=== PATIENT | female | born 1995 | race Two or more races ===

== ENCOUNTER 2024-12-22 15:26 | Emergency (ER) | payer OTHER ==
[~2024-12-22] VITALS: Ht 167.6 cm; Wt 61.9 kg
[2024-12-22 16:07] LABS: Urine Bacteria FEW /hpf (None Seen); Urine Blood 3+ /uL (Negative); Urine Clarity Clear (Clear); Urine Color Colorless (Yellow); Urine Protein, UAD Negative (Negative); Urine Specific Gravity 1.001 (1.001-1.035); Urine Squamous Epithelial Cell None Seen /hpf (<5); Urine Urobilinogen Normal (Negative); Urine WBC 1 /HPF (0-5)
--- NOTE | 2024-12-22 19:06 | DVH ---
EXAM: US OB ULTRASOUND COMP LESS 14WKS CLINICAL HISTORY: vag bleed COMPARISON: None TECHNIQUE: Grayscale, color-flow Doppler, and spectral Doppler ultrasound of the pelvis is performed by transabdominal and transvaginal technique. Findings: Quantitative beta HCG 236. No visualized intrauterine . Uterus measures 9.0 x 3.3 x 4.1 cm in size. Cervical os appears closed. No evidence of subchorionic hemorrhage. Right ovary measures 2.2 x 1.1 x 2.2 cm. Left ovary measures 2.9 x 1.5 x 2.1 cm. Left ovarian follicl e. Normal ovarian color Doppler flow bilaterally. No free fluid within the cul-de-sac. Impression: 1. No visualized intrauterine . Findings may be due to early gestation. Recommend short int erval follow-up ultrasound with serial quantitative beta HCG for further evaluation. 2. Uterus and endometrium are within normal limits. 3. Bilateral ovaries grossly unremarkable.
--- NOTE | 2024-12-22 19:21 | ED.PDOC ---
[employer]OM[employer] HPI Comments Patient complaining of vaginal bleeding and cramping which started today. Concerned because she was possibly 4-6 weeks . States last menstrual was 11/14. She was . States she had beta hCG done on the 15 of December and it recorded as 139. Has not had OBGYN appointment yet. Chief Complaint: Vaginal Bleed Time Seen by MD: 15:43 Reviewed Notes: Nurses Notes Allergies: Coded Allergies: NO KNOWN ALLERGIES (Unverified , 12/22/24) Information Source: Patient Past Medical History PAST MEDICAL HISTORY: Denies Surgical History: Denies all surgeries TOUR CONDUCTOR History: No Pertinent TOUR CONDUCTOR History Constitutional: denies: chills, diaphoresis, fatigue, fever, malaise, sweats, weakness, others EENTM: denies: blurred vision, double vision, ear bleeding, ear discharge, ear drainage, ear pain, ear ringing, eye pain, eye redness, hearing loss, mouth pain, mouth swelling, nasal discharge, nose bleeding, nose congestion, nose pain, photophobia, tearing, throat pain, throat swelling, voice changes, others Respiratory: denies: cough, hemoptysis, orthopnea, SOB at rest, shortness of breath, SOB with excertion, stridor, wheezing, others Cardiovascular: denies: chest pain, dizzy spells, diaphoresis, Dyspnea on exertion, edema, irregular heart beat, left arm pain, lightheadedness, palpitations, PND, syncope, others Gastrointestinal: denies: abdomen distended, abdominal pain, blood streaked bowels, constipated, diarrhea, dysphagia, difficulty swallowing, hematemesis, melena, nausea, poor appetite, poor fluid intake, rectal bleeding, rectal pain, vomiting, others Genitourinary: denies: abnormal vagina bleeding, burning, dyspareunia, dysuria, flank pain, frequency, hematuria, incontinence, pain, , vagina discharge, urgency, others Neurological: denies: dizziness, fainting, headache, left sided numbness, left sided weakness, numbness, paresthesia, pre-existing deficit, right sided numbne ss, right sided weakness, seizure, speech problems, tingling, tremors, weakness, others Musculoskeletal: denies: back pain, gout, joint pain, joint swelling, muscle pain, muscle stiffness, neck pain, others Integumetry: denies: bruises, change in color, change in hair/nails, dryness, laceration, lesions, lumps, rash, wounds, others Allergic/Immunocompromised: denies: Difficulty Healing, Frequent Infections, Hives, Itching, others Hematologic/Lymphatic: denies: anemia, blood clots, easy bleeding, easy bruising, swollen glands, others Endocrine: denies: excessive hunger, excessive sweating, excessive thirst, excessive urination, flushing, intolerance to cold, intolerance to heat, unexplained weight gain, unexplained weight loss, others Psychiatric: denies: anxiety, bipolar disorder, depression, hopeless, panic disorder, schizophrenia, sleepless, suicidal, others Physical Exam General Appearance: No Apparent Distress, Normal HEENT: Normal ENT Inspection, Pharynx Normal, TMs Normal Neck: Full Range of Motion, Non-Tender, Normal, Normal Inspection Respiratory: Chest Non-Tender, Lungs Clear, No Accessory Muscle Use, No Respiratory Distress, Normal Breath Sounds Cardiovascular: No Edema, No JVD, No Murmur, No Gallop, Normal Peripheral Pulses, Regular Rate/Rhythm Breast Exam: Deferred Gastrointestinal: No Organomegaly, Non Tender, No Pulsatile Mass, Normal Bowel Sounds, Soft Genitalia: Deferred Pelvic: Deferred Rectal: Deferred Extremities: No calf tenderness, Normal capillary refill, Normal inspection, Normal range of motion, Non-tender, No pedal edema Musculoskeletal : Apperance: Normal 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 Was a procedure done?: No Differential Diagnosis (TOUR CONDUCTOR) Vaginal Bleeding: - Complete, - Incomplete, - Inevitable, - Missed X-Ray, Labs, Meds, VS Vital Signs Date Time Temp Pulse Resp B/P (MAP) Pulse Ox O2 Delivery O2 Flow Rate FiO2 12/22/24 15:48 98.5 95 16 136/88 (104) 97 98.5 Lab Test 12/22/24 16:40 12/22/24 15:35 Range/Units Beta HCG, Quantitative 236.9 H 1.5-4.2 mIU/mL Urine Color Colorless Yellow Urine Clarity Clear Clear Urine pH 6.0 5.0-9.0 Urine Specific [place] 1.001 1.001-1.035 Urine Protein Negative Negative Urine Ketones Negative Negative Urine Blood 3+ H Negative /uL Urine Nitrite Negative Negative Urine Bilirubin Negative Negative Urine Urobilinogen Normal Negative mg/dL Urine Leukocyte Esterase Negative Negative /uL Urine RBC 2 0 - 4 /hpf Urine Microscopic WBC 1 0-5 /HPF Urine Squamous Epithelial Cells None seen <5 /hpf Urine Bacteria Few H None Seen /hpf Urine Glucose Normal Normal mg/dL X-Ray, Labs, Meds, VS Comment Pelvic ultrasound Impression: 1. No acute abdominopelvic abnormalities. 2. Mild left perinephric inflammatory changes with nonobstructive left nephrolithiasis. Findings may reflect a recently passed calculus. 3. No evidence of ureteral or urinary bladder calculi. 4. Hepatomegaly with hepatic steatosis. Patient was beta HCG has increased from her prior testing Advised she will need to follow up in the next 2-4 days for recheck of her beta hCG to make sure it was increasing and possible second-degree ultrasound. Time of 1ST Reevaluation: 19:21 Reevaluation 1ST: Unchanged Patient Education/Counseling: Diagnosis, Treatment, Need For Follow Up (Follow up in two days for recheck) Family Education/Counseling: Diagnosis Departure 1 Departure Time of Disposition: 19:20 Impression: Primary Impression: First trimester bleeding Disposition: 01 HOME / SELF CARE / HOMELESS Condition: Fair Discharged With: Self Comments Patient advised to follow up in two days for recheck of beta hCG in ultrasound Critical Care Note Critical Care Time?: No Stability Stability form required: No Heart Score Heart Score: Heart Score Response (Comments) Value History N/A 0 EKG N/A 0 Age N/A 0 Risk Factors N/A 0 Troponin N/A 0 Total 0 ASIA WRIGHT December 22, 2024 19:21
[2024-12-22 19:57] VITALS: BP 108/80; PULSE 93; RESP 20; TEMP 98.9; O2SAT 97
== END 2024-12-22 21:30 | disposition home or self-care (01) ==
LOC: ER 15:31
DX: O20.9 Hemorrhage in early pregnancy, unspecified (principal); R10.2 Pelvic and perineal pain; Z3A.01 Less than 8 weeks gestation of pregnancy
CPT/HCPCS: 36415; 76801; 76817; 81001; 84702